=== PATIENT | female | born 1965 | race African-American/Black ===

== ENCOUNTER → 2017-01-10 | Outpatient (CLI) | payer OTHER ==
[~2017-01-10] MED LIST: AMLO-110 PO; ATEN50TA8 PO; CALCTAB7 PO; FERR324T PO; FURO-85 PO; MULT-580 PO; OMEG12006 PO; POTA20TA16 PO; PRENTAB26 PO
== END | disposition home or self-care (01) ==
LOC: C.PAPS 10:05
PROVIDERS: ATTEND Obstetrics & Gynecology
DX: Z01.419 Encounter for gynecological examination (general) (routine) without abnormal findings (principal)

== ENCOUNTER → 2017-03-02 | Outpatient (CLI) | payer OTHER ==
[2017-03-02 12:28] LABS: HEMATOCRIT 40.3 % (37-47); MEAN CELL VOLUME 91.2 fL (80-100); MEAN CORPUSCULAR HEMOGLOBIN 31.2 pg (25-34); MEAN CORPUSCULAR HGB CONC 34.2 g/dl (32-36); PLATELET COUNT 299 K/uL (130-400); RED BLOOD COUNT 4.42 M/uL (4.2-5.4); WHITE BLOOD COUNT 3.62 K/uL (4.8-10.8)
[2017-03-02 14:22] LABS: ALT/SGPT 22 U/L (12-78); AST/SGOT 19 U/L (15-37); BLOOD UREA NITROGEN 13 mg/dl (7-18); BUN/CREATININE RATIO 14.4 (10-20); CARBON DIOXIDE 31 mmol/L (21-32); CHLORIDE 104 mmol/L (98-107); CHOLESTEROL 224 mg/dl (0-200); CREATININE 0.87 mg/dl (0.60-1.20); GLUCOSE 82 mg/dl (70-99); POTASSIUM 3.6 mmol/L (3.5-5.1); SODIUM 140 mmol/L (136-145); TRIGLYCERIDES 54 mg/dl (0-150); VERY LOW DENSITY LIPOPROT CALC 11 mg/dl
[2017-03-02 14:26] LABS: ALB/GLOB RATIO 0.9 (0.9-2); ALKALINE PHOSPHATASE 89 U/L (45-117); CHOLESTEROL/HDL RATIO 2.6; HDL CHOLESTEROL 87 mg/dl; LDL CHOLESTEROL CALCULATED 126 mg/dl
[2017-03-02 14:29] LABS: CALCIUM 8.7 mg/dl (8.5-10.1)
== END | disposition home or self-care (01) ==
LOC: C.LAB 11:41
PROVIDERS: ATTEND Physician Assistant
DX: E78.5 Hyperlipidemia, unspecified (principal); Z86.2 Personal history of diseases of the blood and blood-forming organs and certain disorders involving the immune mechanism

== ENCOUNTER → 2017-05-25 | Outpatient (CLI) | payer OTHER ==
--- NOTE | 2017-05-26 15:32 | MAMMOGRAPHY REPORT ---
BILATERAL DIGITAL SCREENING MAMMOGRAM TOMOSYNTHESIS WITH CAD: 05/25/2017 CLINICAL HISTORY: Routine screening. TECHNIQUE: Breast tomosynthesis in addition to standard 2D mammography was performed. Current study was also evaluated with a Computer Aided Detection (CAD) system. COMPARISON: Comparison is made to exams dated: 03/08/2016 mammogram, 03/05/2015 mammogram, 02/03/2014 m ammogram, 01/31/2013 mammogram, 02/01/2012 mammogram, and 12/24/2010 mammogram - [facility] er. BREAST COMPOSITION: The tissue of both breasts is heterogeneously dense, which may obscure small mas ses. FINDINGS: No suspicious masses, calcifications, or areas of architectural distortion are noted in ei ther breast. There has been no significant interval change compared to prior exams. IMPRESSION: ACR BI-RADS CATEGORY 1: NEGATIVE There is no mammographic evidence of malignancy. A 1 year screening mammogram is recommended. The pa tient will receive written notification of the results. Approximately 10% of breast cancers are not detected with mammography. A negative mammographic report should not delay biopsy if a clinically suggestive mass is present. Belle Catalan M.D. ah/:05/25/2017 16:05:08 Lead Maintenance Technician: Manas CHISHOLM(Srikanth)(M), [facility] letter sent: Normal 1/2 BI-RADS Code: ACR BI-RADS Category 1: Negative
== END | disposition home or self-care (01) ==
LOC: C.MAMM 14:10
PROVIDERS: ATTEND Physician Assistant
DX: Z12.31 Encounter for screening mammogram for malignant neoplasm of breast (principal)

== ENCOUNTER → 2017-06-09 | Outpatient (CLI) | payer OTHER | END | disposition home or self-care (01) | LOC: C.PATHSPEC 13:32 | PROVIDERS: ATTEND Obstetrics & Gynecology | DX: D25.9 Leiomyoma of uterus, unspecified (principal) ==

== ENCOUNTER 2017-11-09 10:17 | Emergency (ER) | payer OTHER ==
[~2017-11-09] VITALS: Ht 156.2 cm; Wt 60.0 kg
[2017-11-09 10:47] VITALS: TEMP 36.7; Ht 156.2 cm; Wt 60.0 kg
[2017-11-09] MEDS ORDERED: OPTIRAY 320 IV PRN (11:30)
--- NOTE | 2017-11-09 12:04 | DIAGNOSTIC IMAGING REPORT ---
L RIBS UNILATERAL WITH PA CHEST CLINICAL HISTORY: 52 years-old Female presenting with left eval for fx, lower left rib pain. TECHNIQUE: Frontal and oblique views of the left ribs as well as PA view of the chest were obtained. COMPARISON: Chest x-ray from 03/05/2013. FINDINGS: Cardiomediastinal silhouette normal. Lungs and pleural spaces clear. Upper abdomen normal. No displaced left rib fracture. IMPRESSION: 1. No acute cardiopulmonary disease. 2. No displaced left rib fracture. Electronically signed by: Damion Dominguez M.D. 11/09/2017 12:02 PM Dictated Date/Time: 11/09/2017 12:01 PM
[2017-11-09 12:07] LABS: BASO % 0.3 %; BASO ABS # 0.01 K/uL (0-0.2); EOS % 1.9 %; EOS ABS # 0.07 K/uL (0-0.5); HEMATOCRIT 40.4 % (37-47); HEMOGLOBIN 14.1 g/dL (12.0-16.0); IG# 0.01 K/uL (0.00-0.02); LYMPH % 40.9 %; LYMPH ABS # 1.53 K/uL (1.2-3.4); MEAN CORPUSCULAR HEMOGLOBIN 31.1 pg (25-34); MEAN CORPUSCULAR HGB CONC 34.9 g/dl (32-36); MEAN PLATELET VOLUME 9.3 fL (7.4-10.4); MONO % 10.2 %; MONO ABS # 0.38 K/uL (0.11-0.59); NEUT % 46.4 %; NEUT ABS # 1.74 K/uL (1.4-6.5); PLATELET COUNT 258 K/uL (130-400); RED CELL DISTRIBUTION WIDTH CV 12.5 % (11.5-14.5); RED CELL DISTRIBUTION WIDTH SD 40.1 fL (36.4-46.3); WHITE BLOOD COUNT 3.74 K/uL (4.8-10.8)
[2017-11-09 12:24] LABS: ALBUMIN 4.1 gm/dl (3.4-5.0); CALCIUM 9.3 mg/dl (8.5-10.1); CREATININE 1.01 mg/dl (0.60-1.20); POTASSIUM 3.7 mmol/L (3.5-5.1)
[2017-11-09 12:27] LABS: TOTAL PROTEIN 8.2 gm/dl (6.4-8.2)
[2017-11-09 13:20] VITALS: BP 161/92; PULSE 61; O2SAT 99
--- NOTE | 2017-11-09 13:28 | DIAGNOSTIC IMAGING REPORT ---
ABDOMEN AND PELVIS CT WITH IV CONTRAST CT DOSE: 344.32 mGycm HISTORY: Acute left-sided flank pain status post trauma. History of multi fibroid uterus trauma left flank eval for injury TECHNIQUE: Multiaxial CT images of the abdomen and pelvis were performed following the use of intravenous contrast. A dose lowering technique was utilized adhering to the principles of ALARA. COMPARISON STUDY: Chest and rib radiographs of same day, pelvic MR 07/14/2015. FINDINGS: Mild dependent subsegmental bibasilar atelectasis. No pneumatosis or pneumoperitoneum. Imaged inferior cardiac chambers are unremarkable. Gallbladder is mildly contracted. The liver, spleen, pancreas and adrenal glands are unremarkable. Kidneys are within normal limits. There is mild dilation of the ureters bilaterally extending to level of the uterus. Urinary bladder is partially decompressed. Uterus is again noted to be markedly enlarged measuring up to approximately 11.3 x 11.2 x 11.5 cm and is heterogeneous throughout with multiple fibroids. The largest fibroid uterus obscures the adnexa. Aorta is normal in both course and caliber. No bulky adenopathy identified. There is no bowel structure or focal bowel wall thickening identified. The appendix is not well seen. No secondary signs of acute appendicitis. Soft tissues are unremarkable. Bones appear intact without acute fracture identified. IMPRESSION: 1. No acute intra-abdominal or intrapelvic abnormality identified. No evidence of acute solid organ injury. 2. Enlarged heterogeneous fibroid uterus redemonstrated. 3. Mild dilation of the bilateral ureters extending to the pelvis without junior hydronephrosis is noted. These findings may be secondary to mass effect from the markedly enlarged fibroid uterus. Electronically signed by: Jean Pierre Agarwal M.D. 11/09/2017 1:26 PM Dictated Date/Time: 11/09/2017 1:18 PM
--- NOTE | 2017-11-09 18:19 | EMERGENCY ROOM VISIT NOTE ---
History Report prepared by Janeth: Karthik Medina Under the Supervision of: Dr. Shankar Roman M.D. First contact with patient: 11:10 Chief Complaint: ABDOMINAL PAIN Stated Complaint: BRUISING ROLLING PAIN FROM BEING HIT Nursing Triage Summary: pt was hit on left flank on monday and now still has pain and pain down her but cheek History of Present Illness The patient is a 52 year old female who presents to the Emergency Room with complaints of worsening left flank pain starting three days ago which she describes as a sharp pain. The patient states that she was cleaning at work, and she was hit in the side with the knob of a heavy door, and she did not fall to the ground when this happened. She states that she has been having worsening pain over the past couple of nights. She additionally notes that she is having pain down into her left buttock and the back of her left leg. She states that she has been taking Aleve for the pain, and she states that her blood pressure has been elevated. The patient states that her urine has been darker than usual , though she hasn't seen any blood, and she denies any blood in her stools. The patient states that she is not having any abdominal pain, fever, nausea, or vomiting. She denies any numbness or weakness to her legs. Source of History: patient Onset: three days ago Position: other (left flank) Quality: sharp Timing: worsening Associated Symptoms: No fevers, No nausea, No vomiting, No abdominal pain Note: Associated symptoms: dark urine, pain in her left buttock, and pain down the back of her left leg. Review of Systems See HPI for pertinent positives & negatives. A total of 10 systems reviewed and were otherwise negative. Past Medical & Surgical Medical Problems: (1) Hypertension Family History Heart disease Social History Smoking Status: Never Smoker Alcohol Use: none Drug Use: none Marital Status: single Occupation Status: unemployed Current/Historical Medications Scheduled Amlodipine (Norvasc), 5 MG PO QAM Atenolol (Tenormin), 50 MG PO QAM Calcium Carbonate-Vitamin D W/ (Caltrate 600 Plus), 1 TAB PO HS Furosemide (Lasix), 10 MG PO QAM Multiple Vitamins W/ Minerals (Hair/Skin/Nails), 1 TAB PO HS Multivit/Min/Iron/Fol Ac/Pren ( Vitamin), 1 TAB PO HS [place]-3 Fatty Acids ([place] 3), 1 CAP PO HS Potassium Ext Rel (Klor-Con), 20 MEQ PO HS Allergies Coded Allergies: No Known Allergies (Unverified , 11/09/17) Physical Exam Vital Signs Date Time Temp Pulse Resp B/P (MAP) Pulse Ox O2 Delivery O2 Flow Rate FiO2 11/09/17 13:20 61 16 161/92 99 11/09/17 12:06 61 17 134/90 97 Room Air 11/09/17 10:47 36.7 70 20 149/94 98 Room Air Physical Exam Constitutional: Vital signs reviewed. Eyes: Pupils are equal round reactive to light. Conjunctiva are noninjected. ENT: Pharynx is clear without erythema or exudate. Mucous membranes are moist. Neck supple without meningeal signs. Respiratory: Clear to auscultation bilaterally. Breath sounds are equal bilaterally. Cardiovascular: Regular rate and rhythm. No rubs or gallops. GI: Soft, nondistended and nontender. Bowel sounds are present. Musculoskeletal: Tenderness over the left posterior lower ribs and the left flank with ecchymosis over the left flank. Integumentary: No cyanosis. Neurological: The patient is awake and alert. No focal deficits. Psychiatric: Normal affect. Medical Decision & Procedures ER Provider Diagnostic Interpretation: Radiology results as stated below per my review and the radiologist's interpretation: L RIBS UNILATERAL WITH PA CHEST CLINICAL HISTORY: 52 years-old Female presenting with left eval for fx, lower left rib pain. TECHNIQUE: Frontal and oblique views of the left ribs as well as PA view of the chest were obtained. COMPARISON: Chest x-ray from 03/05/2013. FINDINGS: Cardiomediastinal silhouette normal. Lungs and pleural spaces clear. Upper abdomen normal. No displaced left rib fracture. IMPRESSION: 1. No acute cardiopulmonary disease. 2. No displaced left rib fracture. Electronically signed by: Damion Dominguez M.D. 11/09/2017 12:02 PM Dictated Date/Time: 11/09/2017 12:01 PM ABDOMEN AND PELVIS CT WITH IV CONTRAST CT DOSE: 344.32 mGycm HISTORY: Acute left-sided flank pain status post trauma. History of multi fibroid uterus trauma left flank eval for injury TECHNIQUE: Multiaxial CT images of the abdomen and pelvis were performed following the use of intravenous contrast. A dose lowering technique was utilized adhering to the principles of ALARA. COMPARISON STUDY: Chest and rib radiographs of same day, pelvic MR 07/14/2015. FINDINGS: Mild dependent subsegmental bibasilar atelectasis. No pneumatosis or pneumoperitoneum. Imaged inferior cardiac chambers are unremarkable. Gallbladder is mildly contracted. The liver, spleen, pancreas and adrenal glands are unremarkable. Kidneys are within normal limits. There is mild dilation of the ureters bilaterally extending to level of the uterus. Urinary bladder is partially decompressed. Uterus is again noted to be markedly enlarged measuring up to approximately 11.3 x 11.2 x 11.5 cm and is heterogeneous throughout with multiple fibroids. The largest fibroid uterus obscures the adnexa. Aorta is normal in both course and caliber. No bulky adenopathy identified. There is no bowel structure or focal bowel wall thickening identified. The appendix is not well seen. No secondary signs of acute appendicitis. Soft tissues are unremarkable. Bones appear intact without acute fracture identified. IMPRESSION: 1. No acute intra-abdominal or intrapelvic abnormality identified. No evidence of acute solid organ injury. 2. Enlarged heterogeneous fibroid uterus redemonstrated. 3. Mild dilation of the bilateral ureters extending to the pelvis without junior hydronephrosis is noted. These findings may be secondary to mass effect from the markedly enlarged fibroid uterus. Electronically signed by: Jean Pierre Agarwal M.D. 11/09/2017 1:26 PM Dictated Date/Time: 11/09/2017 1:18 PM Laboratory Results 11/09/17 11:38 Red Blood Count 4.54, Mean Corpuscular Volume 89.0, Mean Corpuscular Hemoglobin 31.1, Mean Corpuscular Hemoglobin Concent 34.9, Mean Platelet Volume 9.3, Neutrophils (%) (Auto) 46.4, Lymphocytes (%) (Auto) 40.9, Monocytes (%) (Auto) 10.2, Eosinophils (%) (Auto) 1.9, Basophils (%) (Auto) 0.3, Neutrophils # (Auto ) 1.74, Lymphocytes # (Auto) 1.53, Monocytes # (Auto) 0.38, Eosinophils # (Auto ) 0.07, Basophils # (Auto) 0.01 11/09/17 11:38 Test 11/09/17 00:00 11/09/17 11:38 Urine Color YELLOW Urine Appearance CLEAR (CLEAR) Urine pH 7.0 (4.5-7.5) Urine Specific [place] 1.016 (1.000-1.030) Urine Protein NEG (NEG) Urine Glucose (UA) NEG (NEG) Urine Ketones NEG (NEG) Urine Occult Blood NEG (NEG) Urine Nitrite NEG (NEG) Urine Bilirubin NEG (NEG) Urine Urobilinogen NEG (NEG) Urine Leukocyte Esterase NEG (NEG) White Blood Count 3.74 K/uL (4.8-10.8) Red Blood Count 4.54 M/uL (4.2-5.4) Hemoglobin 14.1 g/dL (12.0-16.0) Hematocrit 40.4 % (37-47) Mean Corpuscular Volume 89.0 fL (80-100) Mean Corpuscular Hemoglobin 31.1 pg (25-34) Mean Corpuscular Hemoglobin Concent 34.9 g/dl (32-36) Platelet Count 258 K/uL (130-400) Mean Platelet Volume 9.3 fL (7.4-10.4) Neutrophils (%) (Auto) 46.4 % Lymphocytes (%) (Auto) 40.9 % Monocytes (%) (Auto) 10.2 % Eosinophils (%) (Auto) 1.9 % Basophils (%) (Auto) 0.3 % Neutrophils # (Auto) 1.74 K/uL (1.4-6.5) Lymphocytes # (Auto) 1.53 K/uL (1.2-3.4) Monocytes # (Auto) 0.38 K/uL (0.11-0.59) Eosinophils # (Auto) 0.07 K/uL (0-0.5) Basophils # (Auto) 0.01 K/uL (0-0.2) RDW Standard Deviation 40.1 fL (36.4-46.3) RDW Coefficient of Variation 12.5 % (11.5-14.5) Immature Granulocyte % (Auto) 0.3 % Immature Granulocyte # (Auto) 0.01 K/uL (0.00-0.02) Anion Gap 5.0 mmol/L (3-11) Est Creatinine Clear Calc Drug Dose 54.3 ml/min Estimated GFR () 73.6 Estimated GFR (Non- 63.5 BUN/Creatinine Ratio 15.5 (10-20) Calcium Level 9.3 mg/dl (8.5-10.1) Total Bilirubin 0.5 mg/dl (0.2-1) Direct Bilirubin 0.1 mg/dl (0-0.2) Aspartate Amino Transf (AST/SGOT) 27 U/L (15-37) Alanine Aminotransferase (ALT/SGPT) 26 U/L (12-78) Alkaline Phosphatase 91 U/L (45-117) Total Protein 8.2 gm/dl (6.4-8.2) Albumin 4.1 gm/dl (3.4-5.0) Lipase 90 U/L (73-393) Laboratory results as reviewed by me. ED Course 1113: The patient was evaluated in room B3. A complete history and physical exam was performed. 1401: I reevaluated the patient, and I discussed the test results with her including white blood cell count. She already knows about her fibroid uterus. She will be discharged home. Medical Decision This is a 52-year-old female who presents with flank pain after being hit by a door at work. Differential diagnosis includes contusion, abdominal wall hematoma, rib fracture, splenic laceration, kidney injury. I did perform a limited focused review of portions of the patient's old chart on the electronic medical record. The patient has had no recent pertinent visits to this hospital. I did evaluate the patient as noted above. IV access was established. I did order and personally review the patient's rib and chest x-ray as described above. There is no evidence of acute fracture. Urine analysis did not show blood or infection. I did order and review the patient's blood work as noted in the electronic medical record. She is not anemic. She does have leukopenia which has been present on her previous visits. I did order a CT of the abdomen and pelvis. I did review the images myself as well as the radiology report as described above. There is no evidence of intra-abdominal injury. She does have a fibroid uterus. I did discuss the test results with the patient. She was aware of the fibroids. She was unaware of her leukopenia and will follow up with her doctor for further evaluation of this. She was discharged in good condition. Medication Reconcilliation Current Medication List: was personally reviewed by me Blood Pressure Screening Patient's blood pressure: Elevated blood pressure Blood pressure disposition: Referred to PCP Impression Primary Impression: Injury to flank Additional Impression: Leukopenia Scribe Attestation The scribe's documentation has been prepared under my direct and personally reviewed by me in its entirety. I confirm that the note above accurately reflects all work, treatment, procedures, and medical decision making performed by me. Departure Information Dispostion Home / Self-Care Forms Call Back Authorization, HOME CARE DOCUMENTATION FORM, IMPORTANT VISIT INFORMATION Patient Instructions My [facility] Additional Instructions You have been examined and treated today on an emergency basis only. This is not a substitute for, or an effort to provide, complete comprehensive medical care. It is impossible to recognize and treat all injuries or illnesses in a single emergency department visit. It is therefore important that you follow up closely with your physician. Call as soon as possible for an appointment. Return for worsening symptoms or if you develop fever, vomiting, abdominal pain , blood in your urine or stool or any other concerning symptoms. Your white blood cell count was slightly low today and was noted to be low since 2014. Please address this with your regular physician. Problem Qualifiers Primary Impression: Injury to flank Encounter type: sequela Qualified Codes: S39.91XS - Unspecified injury of abdomen, sequela Additional Impression: Leukopenia Leukopenia type: unspecified Qualified Codes: D72.819 - Decreased white blood cell count, unspecified
== END 2017-11-09 14:12 | disposition home or self-care (01) ==
LOC: C.EDB 10:19
DX: S39.91XA Unspecified injury of abdomen, initial encounter (principal); D72.819 Decreased white blood cell count, unspecified; W22.8XXA Striking against or struck by other objects, initial encounter; I10 Essential (primary) hypertension; Z82.49 Family history of ischemic heart disease and other diseases of the circulatory system

== ENCOUNTER → 2018-01-01 | Outpatient (CLI) | payer OTHER ==
[~2018-01-01] MED LIST changes: -FERR324T PO; +POTA-639 PO; -POTA20TA16 PO
[2018-01-01 15:42] LABS: BASO % 0.2 %; BASO ABS # 0.01 K/uL (0-0.2); EOS % 1.4 %; EOS ABS # 0.06 K/uL (0-0.5); HEMATOCRIT 37.3 % (37-47); IG# 0.01 K/uL (0.00-0.02); LYMPH % 36.9 %; LYMPH ABS # 1.57 K/uL (1.2-3.4); MEAN CELL VOLUME 89.4 fL (80-100); MEAN CORPUSCULAR HEMOGLOBIN 31.2 pg (25-34); MEAN CORPUSCULAR HGB CONC 34.9 g/dl (32-36); MEAN PLATELET VOLUME 9.4 fL (7.4-10.4); MONO % 8.5 %; MONO ABS # 0.36 K/uL (0.11-0.59); NEUT % 52.8 %; NEUT ABS # 2.25 K/uL (1.4-6.5); PLATELET COUNT 254 K/uL (130-400); RED CELL DISTRIBUTION WIDTH CV 13.6 % (11.5-14.5); RED CELL DISTRIBUTION WIDTH SD 44.4 fL (36.4-46.3); WHITE BLOOD COUNT 4.26 K/uL (4.8-10.8)
[2018-01-01 15:52] LABS: ALBUMIN 3.7 gm/dl (3.4-5.0); ALT/SGPT 28 U/L (12-78); AST/SGOT 32 U/L (15-37); BLOOD UREA NITROGEN 20 mg/dl (7-18); CALCIUM 8.9 mg/dl (8.5-10.1); CARBON DIOXIDE 27 mmol/L (21-32); CREATININE 0.78 mg/dl (0.60-1.20); GLUCOSE 84 mg/dl (70-99); POTASSIUM 3.6 mmol/L (3.5-5.1); SODIUM 136 mmol/L (136-145)
[2018-01-01 15:55] LABS: ALKALINE PHOSPHATASE 91 U/L (45-117); TOTAL PROTEIN 7.6 gm/dl (6.4-8.2)
== END | disposition home or self-care (01) ==
LOC: C.LAB 14:02
PROVIDERS: ATTEND Family Medicine Adult Medicine
DX: I10 Essential (primary) hypertension (principal); E78.5 Hyperlipidemia, unspecified; D72.819 Decreased white blood cell count, unspecified